=== PATIENT | female | born 1935 | race Caucasian/White ===

== ENCOUNTER 2023-08-08 09:10 | Observation (INO) ==
--- NOTE | 2023-08-08 09:26 | EKG ---
Test Reason : chest pain Blood Pressure : */* mmHG Vent. Rate : 83 BPM Atrial Rate : 83 BPM P-R Int : 146 ms QRS Dur : 154 ms QT Int : 432 ms P-R-T Axes : -27 -43 -16 degrees QTc Int : 507 ms Normal sinus rhythm Left axis deviation Right bundle branch block Abnormal ECG No previous ECGs available Confirmed by Joaquín Parihk MD ([id number]) on 08/08/2023 1:42:21 PM Referred By: Confirmed By: Joaquín Parikh MD
--- NOTE | 2023-08-08 09:28 | DR.CP ---
HPI Time Seen Time Seen by Provider: 08/08/23 09:17 PCP Primary Care Physician: Giles Complaint Chief Complaint Doctor Comments: 87 y/o female is for evaluation.. Not feeling well over the past 2 weeks. Having exertional dyspnea, cannot do much without getting short of breath. Has been having some chest discomfort off and on over the past 2 weeks as well. Located across anterior chest. Does not radiate. Is worse with exertion, better with rest. Has a minimal cough, productive of slight white sputum. No fever, chills, nausea or vomiting. Has no bladder issues. Fights constipation chronically, moved her bowels this a.m.. No sinus congestion, sore throat. Distant history of CABG. Chief Complaint:: patient states she has had SOB progressively getting worse for 2 weeks, became more severe last night with orthopnea. She states it is better this morning. COVID-19 Coronavirus risk:travel/contact w/high risk person: No Has patient experienced Coronavirus symptoms: No Reviewed Nurses Notes Review: Yes Source History Provided: Patient Mode of Arrival Mode of Arrival: Ambulatory Timing Onset of Chief Complaint: 07/25/23 PMH PMH Past Medical History: Yes Past Medical History: Arthritis, Migraines, GERD, Headaches, Hypertension and [place] Past Surgical History: Yes Surgical History: , CABG/Valve Surgery and Cholecystectomy Family History History of Family Medical Conditions: Yes Family Medical History: Diabetes Mellitus, [place], Coronary Artery Disease, Sudden Cardiac and Hypertension Social History Does patient currently use any type of tobacco product: No Have you used tobacco products in the last 12 months: No Type of Tobacco Use: None Does any household member use tobacco: No Alcohol Use: None Do you use any recreational Drugs:: No Lives With: Family Lives Where: Home Travel Risk Coronavirus risk:travel/contact w/high risk person: No Has patient experienced Coronavirus symptoms: No Infectious screening In the last 2 months have you had wt loss of >10#?: NO Have you had fever, night sweats or hemotysis?: No Have you traveled outside the country in the last 6 months?: No Isolation: Standard ROS Review of Systems Constitutional: No Symptoms Reported Eyes: No Symptoms Reported ENTM: No Symptoms Reported Respiratoy: See HPI Cardiovascular: No Symptoms Reported Gastrointestinal/Abdominal: No Symptoms Reported Genitourinary: No Symptoms Reported Neurological: No Symptoms Reported Musculoskeletal: No Symptoms Reported Integumentary: No Symptoms Reported Hematologic/Lymphatic: No Symptoms Reported All Other Systems: Reviewed and Negative PE Vitals Vitals: Vital Signs Temperature 98.3 F Pulse Rate 74 Pulse Rate 75 Pulse Rate 73 Pulse Rate 72 Pulse Rate 73 Pulse Rate 73 Pulse Rate 73 Pulse Rate 79 Pulse Rate 82 Pulse Rate 84 Respiratory Rate 3 Respiratory Rate 14 Respiratory Rate 24 Respiratory Rate 17 Respiratory Rate 16 Respiratory Rate 14 Respiratory Rate 17 Respiratory Rate 24 Respiratory Rate 20 Respiratory Rate 22 Blood Pressure 163/85 Blood Pressure 155/79 Blood Pressure 165/77 Blood Pressure 165/77 Blood Pressure 165/77 Blood Pressure 185/88 Blood Pressure 180/83 O2 Sat by Pulse Oximetry 100 O2 Sat by Pulse Oximetry 99 O2 Sat by Pulse Oximetry 99 O2 Sat by Pulse Oximetry 99 O2 Sat by Pulse Oximetry 99 O2 Sat by Pulse Oximetry 100 O2 Sat by Pulse Oximetry 100 O2 Sat by Pulse Oximetry 100 O2 Sat by Pulse Oximetry 100 O2 Sat by Pulse Oximetry 100 General General Appearance: Alert and In No Apparent Distress Eyes Eye exam: PERRL and EOMI ENT ENT Exam: Normal Oropharynx and Mucous Membranes Moist Respiratory Respiratory Exam: Normal Lung Sounds Bilat; negative Accessory Muscle Use or Respiratory Distress Cardiovascular Cardiovascular Exam: Regular Rate, Normal Rhythm and Normal Heart Sounds Abdominal Exam Abdominal Exam: Normal Bowel Sounds and Soft; negative Tenderness Extremities Extremities Exam: Normal Inspection; negative Edema Neurologic Neurological Exam: Alert, Oriented X3 and CN II-XII Intact; negative Motor Sensory Deficit Skin Skin Exam: Warm and Dry COURSE Treatment Treatment: 87-year-old female with 2 weeks of feeling poorly. Having marked exertional dyspnea per patient and her daughter. Having occasional episodes of chest discomfort. Physical exam is benign. Does not appear to be fluid overloaded clinically. Workup shows a normal CBC, normal CMP. BNP is slightly elevated 185 troponin was normal, lipase was slightly elevated at 99 as well as the TSH slightly elevated 11. BP is bit elevated, given 20 of Lasix IV. Discussed with Dr. Parikh, who used to treat her, prior to moving here. Will consult on her. Will order an echocardiogram. Discussed with Dr. Obrien, on-call for the hospital, accepts the admission. [facility]OR Labs Reviewed Laboratory Results Reviewed?: Yes 08/08/23 09:25 08/08/23 09:25 Laboratory: WBC 3.7 X10^3/uL (3.6-10.0) 08/08/23 09:25 RBC 3.85 X10^6/uL (3.5-5.4) 08/08/23 09:25 Hgb 12.8 g/dL (12.0-16.0) 08/08/23 09:25 Hct 38.7 % (36.0-47.0) 08/08/23: MCV 100.5 fL (80.0-100.0) H 08/08/23 09: MCH 33.3 pg (27.0-34.0) 08/08/23 09: MCHC 33.1 g/dL (33.0-35.0) 08/08/23: RDW 14.4 % (11.6-16.5) 08/08/23: Plt Count 145 X10^3/uL (150.0-450.0) L 08/08/23: MPV 8.8 fL (7.4-11.0) 08/08/23: Neut % (Auto) 62.1 % (42.0-75.0) 08/08/23 09: Lymph % (Auto) 26.0 % (21.0-51.0) 08/08/23: [place] % (Auto) 9.6 % (0.0-13.0) 08/08/23: Eos % (Auto) 1.9 % (0.9-2.9) 08/08/23: Baso % (Auto) 0.4 % (0.2-1.0) 08/08/23: Neut # (Auto) 2.3 x10^3/uL (2.2-4.8) 08/08/23:25 Lymph # (Auto) 1.0 X10^3/uL (1.3-2.9) L 08/08/23:25 [place] # (Auto) 0.4 x10^3/uL (0.3-0.8) 08/08/23 09:25 Eos # (Auto) 0.1 x10^3/uL (0.0-0.2) 08/08/23 09: Baso # (Auto) 0.0 X10^3/uL (0.0-0.1) 08/08/23 09:25 Absolute Nucleated RBC 0.0 /100WBC 08/08/23 09:25 Sodium 138 mmol/L (136-145) 08/08/23 09:25 Corrected Sodium 139 mmol/L (136-145) 08/08/23 09:25 Potassium 3.6 mmol/L (3.5-5.1) 08/08/23 09:25 Chloride 103 mmol/L (98-107) 08/08/23 09:25 Carbon Dioxide 27.3 mmol/L (21-32) 08/08/23 09:25 BUN 17 mg/dL (7-18) 08/08/23 09:25 Creatinine 0.75 mg/dL (0.55-1.02) 08/08/23 09:25 Est GFR (MDRD) Af Amer > 60 (>60) 08/08/23 09:25 Est GFR (MDRD) Non-Af > 60 (>60) 08/08/23 09:25 Glucose 162 mg/dL (65-99) H 08/08/23 09:25 Calcium 8.9 mg/dL (8.5-10.1) 08/08/23 09:25 Corrected Calcium TNP 08/08/23 09:25 Total Bilirubin 0.30 mg/dL (0.2-1.0) 08/08/23 09:25 AST 30 Units/L (15-37) 08/08/23 09:25 ALT 39 Units/L (12-78) 08/08/23 09:25 Alkaline Phosphatase 96 Units/L (46-116) 08/08/23 09:25 Troponin I High Sens 11.0 ng/L (4.0-60.0) 08/08/23 09:25 B-Natriuretic Peptide 185 pg/mL (0-79) H 08/08/23 09:25 Total Protein 7.6 g/dL (6.4-8.2) 08/08/23 09:25 Albumin 4.0 g/dL (3.4-5.0) 08/08/23 09:25 Globulin 3.6 g/dL (2.5-4.5) 08/08/23 09:25 Albumin/Globulin Ratio 1.1 Ratio (1.1-2.1) 01/18/24 09:25 Lipase 99 Units/L (16-77) H 08/08/23 09:25 TSH 3rd Generation 11.000 uIU/mL (0.358-3.74) H 08/08/23 09:25 Specimen Type Clean catch urine 08/08/23 10:43 Urine Color Straw (YELLOW) 08/08/23 10:43 Urine Appearance Clear (CLEAR) 08/08/23 10:43 Urine pH 7.0 (5.0 - 8.0) 08/08/23 10:43 Ur Specific [place] 1.015 (1.000-1.030) 08/08/23 10:43 Urine Protein Negative (NEGATIVE) 08/08/23 10:43 Urine Glucose (UA) Negative (NEGATIVE) 08/08/23 10:43 Urine Ketones Negative (NEGATIVE) 08/08/23 10:43 Urine Blood Negative (NEGATIVE) 08/08/23 10:43 Urine Nitrite Negative (NEGATIVE) 08/08/23 10:43 Urine Bilirubin Negative (NEGATIVE) 08/08/23 10:43 Urine Urobilinogen Normal (NORMAL) 08/08/23 10:43 Ur Leukocyte Esterase Negative (NEGATIVE) 08/08/23 10:43 XRAY XRAY Interpreted by: Both X-ray Results: CXR -no acute abnormalities. EKG Rate: 83 [place]: LAD (-43) Block: RBBB ST: Nonsp Opioid Opioid Risk Tool Age (Mateo box if 16-45): No History of Preadolescent Sexual Abuse: No Total: 0 Total Score Risk Category: Low Risk Copyright: Jimmy COLON predicting aberrant behaviors Discharge Plan Diagnosis Discharge Problem: Exertional dyspnea Discharge Plan Patient Disposition: 09 ADMITTED INPATIENT Condition: Stable Prescriptions: No Action atorvastatin 40 mg Tablet 40 mg PO QDAY niacin 1,000 mg tablet extended release 24 hr 1,500 mg PO DAILY clopidogrel 75 mg Tablet 75 mg PO QDAY amlodipine 5 mg Tablet 2.5 mg PO QDAY aspirin 81 mg Tablet,Delayed Release (Dr/Ec) 81 mg PO QDAY fenofibrate micronized 134 mg Capsule 134 mg PO QDAY levothyroxine 75 mcg Tablet 75 mcg PO QDAY ropinirole 0.25 mg tablet 0.25 mg PO HS ascorbic acid (vitamin C) [Vitamin C] 500 mg Tablet,Chewable 500 mg PO QDAY nitroglycerin 0.4 mg Tablet, Sublingual 0.4 mg SUBLINGUAL Q5M PRN Rx Instructions: do not exceed 3 doses per episode metoprolol succinate 25 mg Tablet Extended Release 24 Hr 12.5 mg PO QDAY ranolazine 500 mg Tablet Extended Release 12 Hr 500 mg PO BID cholecalciferol (vitamin D3) [Vitamin D3] 25 mcg (1,000 unit) Tablet 25 mcg PO QDAY Health Concerns: Post Hospitalization: new medications and changes needed to prevent readmission or further decline. Pt educated and given instructions on all concerns. Plan of Treatment: Continue with present treatment and follow up plan. Pt is to keep follow up appointment as instructed and take medications as ordered. Orders to Discharge Patient Discharge Orders: Transfer (Routine); Ordered 08/08/23 Ordered By: John Ayala Follow ups/Referrals Follow ups/Referrals: Larissa Skaggs [Primary Care Provider] - 3 days
[2023-08-08 09:35] LABS: BASOPHILS % (AUTO) 0.4 % (0.2-1.0); EOSINOPHILS # (AUTO) 0.1 x10^3/uL (0.0-0.2); EOSINOPHILS % (AUTO) 1.9 % (0.9-2.9); HEMATOCRIT 38.7 % (36.0-47.0); HEMOGLOBIN 12.8 g/dL (12.0-16.0); MEAN CORPUSCULAR HEMOGLOBIN 33.3 pg (27.0-34.0); MEAN CORPUSCULAR HGB CONC 33.1 g/dL (33.0-35.0); MEAN CORPUSCULAR VOLUME 100.5 fL (80.0-100.0); MEAN PLATELET VOLUME 8.8 fL (7.4-11.0); MONOCYTES # (AUTO) 0.4 x10^3/uL (0.3-0.8); MONOCYTES % (AUTO) 9.6 % (0.0-13.0); NEUTROPHILS # (AUTO) 2.3 x10^3/uL (2.2-4.8); NEUTROPHILS % (AUTO) 62.1 % (42.0-75.0); PLATELET COUNT 145 X10^3/uL (150.0-450.0); RED BLOOD COUNT 3.85 X10^6/uL (3.5-5.4); RED CELL DISTRIBUTION WIDTH 14.4 % (11.6-16.5); WHITE BLOOD COUNT 3.7 X10^3/uL (3.6-10.0)
--- NOTE | 2023-08-08 09:46 | RAD ---
EXAM:CHEST, 1 VIEWHISTORY:SHORTNESS OF BREATH;COMPARISON:No relevant prior studies were available for comparison at the time of interpretation.TECHNIQUE:CHEST, 1 VIEWFINDINGS:Chest:Lines and tubes: Cardiac leads overlie the chest.Mediastinum: Median sternotomy wires are present. Cardiac shadow is normal in size.Pulmonary vessels: No pulmonary vascular congestion.Lung azul: No suspicious airspace opacity.Pleura: No effusion. No pneumothorax.Bones and soft tissues: No acute osseous or soft tissue abnormality.IMPRESSION:1. No acute cardiopulmonary abnormalityTHIS IS AN ELECTRONICALLY VERIFIED FINAL REPORT08/08/2023 9:42 AM - Electronically signed by Fer Arias MD
[2023-08-08 10:07] LABS: ALANINE AMINOTRANSFERASE 39 Units/L (12-78); ALKALINE PHOSPHATASE 96 Units/L (46-116); ASPARTATE AMINO TRANSFERASE 30 Units/L (15-37); BLOOD UREA NITROGEN 17 mg/dL (7-18); CALCIUM 8.9 mg/dL (8.5-10.1); CARBON DIOXIDE 27.3 mmol/L (21-32); CHLORIDE 103 mmol/L (98-107); COR NA(FOR HYPERGLY) 139 mmol/L (136-145); CREATININE 0.75 mg/dL (0.55-1.02); GLUCOSE 162 mg/dL (65-99); POTASSIUM 3.6 mmol/L (3.5-5.1); SODIUM 138 mmol/L (136-145); TOTAL PROTEIN 7.6 g/dL (6.4-8.2); eGFR NON BLACK RACES > 60 (>60)
[2023-08-08] MEDS ORDERED: LASIX ONE (10:17)
[2023-08-08] MEDS: LASIX IVP ONE (10:26)
[2023-08-08 10:48] LABS: BILIRUBIN,URINE NEGATIVE (NEGATIVE); BLOOD/HEMOGLOBIN,URINE NEGATIVE (NEGATIVE); GLUCOSE, URINE NEGATIVE (NEGATIVE); KETONES,URINE NEGATIVE (NEGATIVE); LEUKOCYTE ESTERASE ,URINE NEGATIVE (NEGATIVE); NITRITES,URINE NEGATIVE (NEGATIVE); PROTEIN,URINE NEGATIVE (NEGATIVE); UROBILINOGEN,URINE NORMAL (NORMAL)
[2023-08-08 10:51] LABS: APPEARANCE,URINE CLEAR (CLEAR); COLOR,URINE STRAW (YELLOW)
[2023-08-08] MEDS ORDERED: ATIVAN INJ 2 MG VIAL ONE (12:22)
[2023-08-08] MEDS: ATIVAN INJ 2 MG VIAL IVP ONE (12:32)
[2023-08-08] MEDS ORDERED: CONSULT PHARMACY - POTASSIUM & MAGNESIUM XX SCH ×3 (13:14→20:00)
[2023-08-08] MEDS ORDERED: NITROSTAT SL PRN (13:14)
--- NOTE | 2023-08-08 13:51 | DR.CONSULT ---
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/svg to om/svg to pda- has stent in svg- feeling poorly since - bp 140s- cant do much w/o sob- came to [facility]- labs ok, bnp 185, tsh 11 ( might contribute alittle to sx)- echo: good Lv ef 50% mild to mod mr- was on 3 antianginals: bb/ccb/ranexa- options for more meds/increase thyroid or cath to define anatomy now 18 years post cabg- opted for cath- kidneys good, no allergy to iodine , no metformin Past Medical History Past Medical History: Arthritis, Migraines, GERD, Headaches, Hypertension and [place] Past Surgical History Surgical History: , CABG/Valve Surgery and Cholecystectomy Family History Family Medical History: Diabetes Mellitus, [place], Coronary Artery Disease, Sudden Cardiac and Hypertension Social History Does patient currently use any type of tobacco product: No Have you used tobacco products in the last 12 months: No Type of Tobacco Use: None Does any household member use tobacco: No Alcohol Use: None Medications Home Medications: MS No Known Drug Allergy [No Known Drug Allergy] Allergy (Verified 06/19/14 19:12) CONTINUE taking the following medications amlodipine 5 mg tablet 2.5 mg PO QDAY 08/08/23 [History] ascorbic acid (vitamin C) 500 mg chewable tablet (Vitamin C) 500 mg PO QDAY 08/08/23 [History] aspirin 81 mg tablet,delayed release 81 mg PO QDAY 08/08/23 [History] atorvastatin 40 mg tablet 40 mg PO QDAY 08/08/23 [History] cholecalciferol (vitamin D3) 25 mcg (1,000 unit) tablet (Vitamin D3) 25 mcg PO QDAY 08/08/23 [History] clopidogrel 75 mg tablet 75 mg PO QDAY 08/08/23 [History] fenofibrate micronized 134 mg capsule 134 mg PO QDAY 08/08/23 [History] levothyroxine 75 mcg tablet 75 mcg PO QDAY 08/08/23 [History] metoprolol succinate 25 mg tablet,extended release 24 hr 12.5 mg PO QDAY 08/08/23 [History] niacin 1,000 mg tablet,extended release 24 hr 1,500 mg PO DAILY 08/08/23 [History] nitroglycerin 0.4 mg sublingual tablet 0.4 mg sublingual Q5M PRN 08/08/23 [History] ranolazine 500 mg tablet,extended release,12 hr 500 mg PO BID 08/08/23 [History] ropinirole 0.25 mg tablet 0.25 mg PO HS 08/08/23 [History] Physical Exam Vital Signs: Vital Signs Temperature 98.3 F Pulse Rate 84 Pulse Rate 83 Pulse Rate 84 Pulse Rate 88 Pulse Rate 87 Pulse Rate 81 Pulse Rate 94 Pulse Rate 86 Pulse Rate 85 Pulse Rate 81 Pulse Rate 75 Pulse Rate 74 Pulse Rate 75 Pulse Rate 73 Pulse Rate 72 Pulse Rate 73 Pulse Rate 73 Pulse Rate 73 Pulse Rate 79 Pulse Rate 82 Pulse Rate 84 Respiratory Rate 18 Respiratory Rate 19 Respiratory Rate 13 Respiratory Rate 11 Respiratory Rate 18 Respiratory Rate 18 Respiratory Rate 44 Respiratory Rate 25 Respiratory Rate 20 Respiratory Rate 24 Respiratory Rate 13 Respiratory Rate 3 Respiratory Rate 14 Respiratory Rate 24 Respiratory Rate 17 Respiratory Rate 16 Respiratory Rate 14 Respiratory Rate 17 Respiratory Rate 24 Respiratory Rate 20 Respiratory Rate 22 Blood Pressure 151/79 Blood Pressure 179/93 Blood Pressure 180/89 Blood Pressure 165/88 Blood Pressure 172/79 Blood Pressure 186/87 Blood Pressure 165/80 Blood Pressure 163/85 Blood Pressure 155/79 Blood Pressure 165/77 Blood Pressure 165/77 Blood Pressure 165/77 Blood Pressure 185/88 Blood Pressure 180/83 O2 Sat by Pulse Oximetry 98 O2 Sat by Pulse Oximetry 98 O2 Sat by Pulse Oximetry 99 O2 Sat by Pulse Oximetry 98 O2 Sat by Pulse Oximetry 98 O2 Sat by Pulse Oximetry 99 O2 Sat by Pulse Oximetry 98 O2 Sat by Pulse Oximetry 100 O2 Sat by Pulse Oximetry 99 O2 Sat by Pulse Oximetry 99 O2 Sat by Pulse Oximetry 99 O2 Sat by Pulse Oximetry 100 O2 Sat by Pulse Oximetry 99 O2 Sat by Pulse Oximetry 99 O2 Sat by Pulse Oximetry 99 O2 Sat by Pulse Oximetry 99 O2 Sat by Pulse Oximetry 100 O2 Sat by Pulse Oximetry 100 O2 Sat by Pulse Oximetry 100 O2 Sat by Pulse Oximetry 100 O2 Sat by Pulse Oximetry 100 alert ox3 no jvd clear lungs rrr 1/6 [place] 2/6 hsm ext : minimal edema Plan (1) CAD (coronary artery disease): Status: Acute Narrative Support Text: low level exertional sx now 18 years post cabg/known graft failure w stent in past Plan: push meds, transfer to [facility] [place] for cath- pt and daughter agree with that plan in light of sx (2) Hypertension: Status: Acute Narrative Support Text: push meds (3) Hyperlipidemia: Status: Acute (4) Mitral regurgitation: Status: Acute Narrative Support Text: lower bp (5) Hypothyroid: Status: Acute Narrative Support Text: increase lt4
[2023-08-08] MEDS: K-DUR TAB 20 MEQ PO SCH (14:58)
[2023-08-08] MEDS: NORVASC TAB 5 MG PO SCH (14:58)
[2023-08-08] MEDS: MAG-OX TAB PO SCH (18:04)
[2023-08-08] MEDS: REQUIP PO SCH (20:24)
[2023-08-08] MEDS: RANEXA PO SCH (20:24)
[2023-08-09 05:19] VITALS: BP 128/63; PULSE 73; RESP 20; TEMP 98.7; O2SAT 98
[2023-08-09] MEDS ORDERED: SYNTHROID 88 mcg TAB PO SCH (09:00)
[2023-08-09] MEDS ORDERED: ASPIRIN EC 81 MG PO SCH (09:00)
[2023-08-09] MEDS ORDERED: NORVASC TAB 5 MG PO SCH (09:00)
[2023-08-09] MEDS ORDERED: PLAVIX PO SCH (09:00)
[2023-08-09] MEDS ORDERED: NIASPAN ER TAB 500 MG PO SCH (09:00)
[2023-08-09] MEDS ORDERED: LIPITOR TAB 40 MG PO SCH (09:00)
[2023-08-09] MEDS ORDERED: TOPROL XL PO SCH ×2 (09:00)
[2023-08-09] MEDS ORDERED: SYNTHROID 75 mcg TAB PO SCH (09:00)
[2023-08-09] MEDS ORDERED: TRICOR TAB 145 MG PO SCH (09:00)
== END 2023-08-09 05:29 | disposition short-term general hospital (02) ==
LOC: ER 09:10 → MED/SURG 09:10
PROVIDERS: ADMIT Obstetrics & Gynecology Obstetrics; ATTEND Obstetrics & Gynecology Obstetrics
DX: R73.09 Other abnormal glucose; I34.0 Nonrheumatic mitral (valve) insufficiency; E83.42 Hypomagnesemia; I25.10 Atherosclerotic heart disease of native coronary artery without angina pectoris; R06.02 Shortness of breath; I10 Essential (primary) hypertension; E03.8 Other specified hypothyroidism; E78.5 Hyperlipidemia, unspecified